=== PATIENT | male | born 1980 | race Two or more races ===

== ENCOUNTER 2024-03-19 20:59 | Emergency (ER) | payer OTHER ==
[~2024-03-19] VITALS: Ht 165.1 cm; Wt 99.8 kg
[2024-03-20] MEDS ORDERED: 0.9 % SODIUM CHLORIDE 1,000 ML IV STA (01:14)
[2024-03-20] MEDS ORDERED: HYOSCYAMINE SULFATE 0.125 MG TAB.SUBL SL ONE (01:15)
[2024-03-20] MEDS ORDERED: DIPHENOXYLATE HCL/ATROPINE 1 UDTAB TABLET PO STA (01:16)
[2024-03-20] MEDS ORDERED: ONDANSETRON HCL 2 MG/ML VIAL IV STA (01:16)
[2024-03-20] MEDS ORDERED: BISMUTH SUBSALICYLATE 524 MG/30 ML BLIST.PACK PO STA (01:17)
== END 2024-03-20 03:39 | disposition home or self-care (01) ==
LOC: ER 21:01
DX: K52.9 Noninfective gastroenteritis and colitis, unspecified (principal)